=== PATIENT | female | born 1955 | race Caucasian/White ===

== ENCOUNTER → 2017-01-29 | Outpatient (CLI) | payer OTHER | END | disposition home or self-care (01) | LOC: C.LABBC 09:38 | PROVIDERS: ATTEND Family Medicine | DX: E03.9 Hypothyroidism, unspecified (principal) ==

== ENCOUNTER → 2017-07-14 | Outpatient (CLI) | payer OTHER | END | disposition home or self-care (01) | LOC: C.LABBC 11:34 | PROVIDERS: ATTEND Family Medicine | DX: E03.9 Hypothyroidism, unspecified (principal) ==

== ENCOUNTER → 2017-07-29 | Outpatient (CLI) | payer OTHER ==
--- NOTE | 2017-07-30 12:51 | MAMMOGRAPHY REPORT ---
BILATERAL DIGITAL SCREENING MAMMOGRAM TOMOSYNTHESIS WITH CAD: 07/29/2017 CLINICAL HISTORY: Routine screening. Patient has no complaints. TECHNIQUE: Breast tomosynthesis in addition to standard 2D mammography was performed. Current study was also evaluated with a Computer Aided Detection (CAD) system. COMPARISON: Comparison is made to exams dated: 09/13/2009 ultrasound, 09/13/2009 mammogram - [facility], 03/04/2009, and 02/21/2009. BREAST COMPOSITION: There are scattered areas of fibroglandular density in both breasts. FINDINGS: No suspicious masses, calcifications, or areas of architectural distortion are noted in ei ther breast. There has been no significant interval change compared to prior exams. IMPRESSION: ACR BI-RADS CATEGORY 1: NEGATIVE There is no mammographic evidence of malignancy. A 1 year screening mammogram is recommended. The pa tient will receive written notification of the results. Approximately 10% of breast cancers are not detected with mammography. A negative mammographic report should not delay biopsy if a clinically suggestive mass is present. Cinda Lagos M.D. ah/:07/29/2017 15:50:04 [employer]: Nuria Pena, [facility] letter sent: Normal 1/2 BI-RADS Code: ACR BI-RADS Category 1: Negative
== END | disposition home or self-care (01) ==
LOC: C.MAMM 14:17
PROVIDERS: ATTEND Family Medicine
DX: Z12.31 Encounter for screening mammogram for malignant neoplasm of breast (principal)

== ENCOUNTER 2019-01-17 19:48 | Inpatient (IN) ==
[2019-01-17] MEDS ORDERED: MoRPHine SULFATE 4 MG/ML 1 ML CARP\\VIAL IV STA (20:03)
[2019-01-17] MEDS ORDERED: ONDANSETRON INJ 2 MG/ML 2 ML VIAL IV STA (20:03)
[2019-01-17 20:39] LABS: Basophils # (auto) 0.04 K/uL (0-0.2); Basophils % (auto) 0.4 %; Eosinophils # (auto) 0.11 K/uL (0-0.5); Eosinophils % (auto) 1.2 %; Hematocrit (blood only) 41.9 % (37-47); Hemoglobin 14.3 g/dL (12.0-16.0); Immature Granulocytes # (auto) 0.03 K/uL (0.00-0.02); Immature Granulocytes % (auto) 0.3 %; Lymphocytes # (auto) 2.02 K/uL (1.2-3.4); Lymphocytes % (auto) 21.2 %; Mean Corpuscular Hgb Conc 34.1 g/dL (32-36); Mean Corpuscular Volume 92.9 fL (80-100); Mean Platelet Volume 9.4 fL (7.4-10.4); Monocytes # (auto) 1.03 K/uL (0.11-0.59); Monocytes % (auto) 10.8 %; Neutrophils # (auto) 6.31 K/uL (1.4-6.5); Neutrophils % (auto) 66.1 %; Platelet Count 213 K/uL (130-400); RDW Coefficient of Variation 13.4 % (11.5-14.5); RDW Standard Deviation 45.4 fL (36.4-46.3); Red Blood Count 4.51 M/uL (4.2-5.4); White Blood Count 9.54 K/uL (4.8-10.8)
[2019-01-17 20:48] LABS: BUN Creatinine Ratio 24.3 (10-20); Calcium 9.6 mg/dl (8.5-10.1); Creatinine Clr Calc Pharmacy 71.7 ml/min; Est GFR (African American) 100.9; Potassium 3.8 mmol/L (3.5-5.1)
[2019-01-17 20:51] LABS: Albumin Globulin Ratio 1.1 (0.9-2); Bilirubin,Total 0.9 mg/dl (0.2-1); Globulin 3.7 gm/dl (2.5-4.0); Total Protein 7.7 gm/dl (6.4-8.2)
[2019-01-17 20:55] LABS: iSTAT Creatinine 0.7 mg/dl (0.6-1.3); iSTAT Hemoglobin 14.6 g/dl (12.0-16.0); iSTAT Ionized Calcium 1.19 mmol/l (1.12-1.32); iSTAT Potassium 3.8 mEq/L (3.3-5.0)
[2019-01-17] MEDS ORDERED: IOVERSOL 100ml IV PRN (20:56)
[2019-01-17 21:02] LABS: Appearance Urine Clear (Clear); Bacteria Urine Automated Negative (Negative); Bilirubin Urine Negative (Negative); Blood Urine Negative (Negative); Color Urine Dark Yellow; Epithelial Cell Urine Auto >30 /lpf (0-5); Glucose Urine UA Negative (Negative); Ketones Urine Trace (Negative); Leukocyte Esterase Urine 2+ (Negative); Nitrite Urine Negative (Negative); Protein Urine Negative (Negative); RBC Urine Automated 0-4 /hpf (0-4); Specific Gravity Urine 1.029 (1.000-1.030); Urobilinogen Urine Negative (Negative); pH Urine 6.5 (4.5-7.5)
--- NOTE | 2019-01-17 21:19 | CT Scan Report ---
ABDOMEN AND PELVIS CT WITH IV CONTRAST CT DOSE: 430.57 mGy.cm HISTORY: Acute right upper quadrant abdominal pain R sided ab pain TECHNIQUE: Multiaxial CT images of the abdomen and pelvis were performed following the use of intrave nous contrast. A dose lowering technique was utilized adhering to the principles of ALARA. COMPARISON STUDY: Abdominal radiograph 01/12/2019 FINDINGS: Subsegmental bibasilar atelectasis. No pneumatosis or pneumoperitoneum. The cardiac chambers are unre markable. Hepatic dome is partially excluded from the [id number]. Imaged liver is unremarkable. The spleen p ancreas and adrenal glands appear normal. Moderate gallbladder distention is noted with circumferenti al wall thickening and mucosal hyperemia measuring up to 4 mm. No significant pericholecystic fluid o r edema. Cholelithiasis with possible gallstones about the cystic duct. No choledocholithiasis identi fied. Mild wall thickening with enhancement of the common bile duct. Common bile duct measures up to 7 mm transversely. Renal sinus cysts are present about the bilateral kidneys. No renal or ureteral calculi or obstructiv e uropathy identified. Ureters, and urinary bladder appear unremarkable. Prior hysterectomy. No adnex al mass lesions. Moderate calcified plaque of the abdominal aorta without aneurysm. IVC is unremarkab le. Large hiatal hernia, partially imaged. No bowel obstruction or bowel wall thickening. Colonic div erticulosis without acute diverticulitis. Terminal ileum and appendix appear normal. No ascites or me senteric inflammation. Soft tissues are unremarkable. The bones appear to be intact. Multilevel facet arthrosis and spondylitic spurring. IMPRESSION: 1. Cholelithiasis with gallbladder distention, gallbladder wall thickening and hyperemia is suggestiv e of acute cholecystitis. Additionally, there is equivocal gallstones within the cystic duct. Surgic al consultation recommended. 2. Mild common bile duct dilation without choledocholithiasis identified. Additionally, there is mild wall thickening with enhancement of the common bile duct which may be reactive or reflect underlying cholangitis. Correlate with laboratory analysis. 3. No bowel obstruction or bowel wall thickening. 4. Colonic diverticulosis without acute diverticulitis. 5. Normal appendix. Electronically signed by: Santos Small M.D. 01/17/2019 9:18 PM
[2019-01-17] MEDS ORDERED: PIPERACILLIN/TAZOBACTAM 4.5 GM/120 ML BAG IV ONE (21:37)
[2019-01-17] MEDS ORDERED: SODIUM CHLORIDE 0.9% 1000ML 1,000 ML IV SCH (22:45)
--- NOTE | 2019-01-17 22:49 | Surgery Consultation ---
Date of Consultation January 17, 2019 Assessment & Plan (1) Acute cholecystitis due to biliary calculus: pt is a 64 year-old female who presents to Er with 10 days history RUQ pain, CT-scan- acute cholecystitis and cholelithiasis IMP; acute cholecystitis, cholelithiasis, Plan, I recommend to admit to hospital , iv fluid, antibiotic, control pain, repeat labs in morning, laparoscopic cholecystectomy, possible open or cholangiogram tomorrow, D/W benefits, risks and alternatives of tawana surgery, the risks - infection, bleeding, injury CBD, bowel, may need ERCP, CO, DVT, , pt understood, she agrees with the plan, I answered all questions, History of Present Illness History of Present Illness CC: RUQ pain HPI: pt is a 64 year-old female who presents to ER with 10 days history RUQ with nausea and vomiting, the pain is relate to fat food intake, tawana RUQ pain is getting worse today, pt denies chest pain, no fever, no diarrhea, pt had CT scan at ER dx acute cholecystitis with cholelithiasis. Allergies Allergy/AdvReac Type Severity Reaction Status Date / Time No Known Allergies Allergy Verified 01/17/19 22:33 Home Medications Home Medications Medication Instructions Recorded Confirmed Type levothyroxine 88 mcg capsule 88 mcg PO DAILY 01/05/19 01/17/19 History docusate sodium [Stool Softener] 100 mg PO DAILY 01/17/19 01/17/19 History magnesium hydroxide [Milk of 0 ml PO UD PRN 01/17/19 01/17/19 History Magnesia] psyllium husk [Metamucil] 1 tbsp PO DAILY 01/17/19 01/17/19 History Patient History Medical History Abdominal pain Surgical History H/O: hysterectomy Social History Preferred Language: Serbian Feels Safe at Home: Yes Smoking Status: Former smoker Review of Systems Review of Systems: All systems reviewed & are unremarkable except as noted in HPI & below Constitutional: as per Subjective / HPI Ear, Nose, Mouth, Throat: as per Subjective / HPI Respiratory: as per Subjective / HPI Cardiovascular: as per Subjective / HPI Gastrointestinal: + abdominal pain, + nausea and + vomiting Genitourinary: as per Subjective / HPI Musculoskeletal: as per Subjective / HPI Integumentary: as per Subjective / HPI Neurologic: as per Subjective / HPI Psychiatric: as per Subjective / HPI Endocrine: as per Subjective / HPI hypothyroidism Hematologic / Lymphatic: as per Subjective / HPI Physical Exam Constitutional: WD/WN, vitals as above well developed and well nourished ENMT: external ear and nose normal, oropharynx normal Neck: trachea midline, no thyromegaly trachea midline Respiratory: normal respiratory effort, lungs clear to auscultation normal respiratory effort Cardiovascular: RRR, no murmur, no edema Rate/Rhythm: regular rate and regular rhythm Heart Sounds: normal S1 and normal S2 Gastrointestinal (Abdomen): soft, tenderness at RUQ, no rebound pain, no distend, lower abdominal scar. Musculoskeletal: no cyanosis or clubbing, extremities motor strength 5/5 Neurologic: patellar DTR's 2+ bilat, sensation intact Psychiatric: A+Ox3, euthymic affect Orientation: alert and oriented x 3 Lymphatic: no cervical or axillary lymphadenopathy Results & Data Vital Signs (Past 12 Hours) Vital Signs Temp Pulse Resp BP Pulse Ox 01/17/19 20:47 95 01/17/19 19:56 36.5 C 76 18 183/73 H 99 Laboratory Results Abnormal lab results 01/17/19 01/17/19 01/17/19 Range/Units 20:23 20:23 20:28 Immature Gran # (Auto) 0.03 H (0.00-0.02) K/uL Power # (Auto) 1.03 H (0.11-0.59) K/uL POC Chloride 99 L (101-112) mEq/L POC BUN 19 H (7-18) mg/dl BUN/Creatinine Ratio 24.3 H (10-20) Glucose 104 H (70-99) mg/dl POC Glucose (other) 108 H (70-99) mg/dl AST 228 H (15-37) U/L ALT 240 H (12-78) U/L Alkaline Phosphatase 315 H (45-117) U/L Urine Ketones (Negative) Ur Leukocyte Esterase (Negative) Urine WBC (Auto) (0-5) /hpf U Epithel Cells (Auto) (0-5) /lpf 01/17/19 Range/Units 20:42 Immature Gran # (Auto) (0.00-0.02) K/uL Power # (Auto) (0.11-0.59) K/uL POC Chloride (101-112) mEq/L POC BUN (7-18) mg/dl BUN/Creatinine Ratio (10-20) Glucose (70-99) mg/dl POC Glucose (other) (70-99) mg/dl AST (15-37) U/L ALT (12-78) U/L Alkaline Phosphatase (45-117) U/L Urine Ketones Trace H (Negative) Ur Leukocyte Esterase 2+ H (Negative) Urine WBC (Auto) 10-30 H (0-5) /hpf U Epithel Cells (Auto) >30 H (0-5) /lpf Diagnostic Findings ABDOMEN AND PELVIS CT WITH IV CONTRAST CT DOSE: 430.57 mGy.cm HISTORY: Acute right upper quadrant abdominal pain R sided ab pain TECHNIQUE: Multiaxial CT images of the abdomen and pelvis were performed following the use of intravenous contrast. A dose lowering technique was utilized adhering to the principles of ALARA. COMPARISON STUDY: Abdominal radiograph 01/12/2019 FINDINGS: Subsegmental bibasilar atelectasis. No pneumatosis or pneumoperitoneum. The cardiac chambers are unremarkable. Hepatic dome is partially excluded from the [id number]. Imaged liver is unremarkable. The spleen pancreas and adrenal glands appear normal. Moderate gallbladder distention is noted with circumferential wall thickening and mucosal hyperemia measuring up to 4 mm. No significant pericholecystic fluid or edema. Cholelithiasis with possible gallstones about the cystic duct. No choledocholithiasis identified. Mild wall thickening with enhancement of the common bile duct. Common bile duct measures up to 7 mm transversely. Renal sinus cysts are present about the bilateral kidneys. No renal or ureteral calculi or obstructive uropathy identified. Ureters, and urinary bladder appear unremarkable. Prior hysterectomy. No adnexal mass lesions. Moderate calcified plaque of the abdominal aorta without aneurysm. IVC is unremarkable. Large hiatal hernia, partially imaged. No bowel obstruction or bowel wall thickening. Colonic diverticulosis without acute diverticulitis. Terminal ileum and appendix appear normal. No ascites or mesenteric inflammation. Soft tissues are unremarkable. The bones appear to be intact. Multilevel facet arthrosis and spondylitic spurring. IMPRESSION: 1. Cholelithiasis with gallbladder distention, gallbladder wall thickening and hyperemia is suggestive of acute cholecystitis. Additionally, there is equivocal gallstones within the cystic duct. Surgical consultation recommended. 2. Mild common bile duct dilation without choledocholithiasis identified. Additionally, there is mild wall thickening with enhancement of the common bile duct which may be reactive or reflect underlying cholangitis. Correlate with laboratory analysis. 3. No bowel obstruction or bowel wall thickening. 4. Colonic diverticulosis without acute diverticulitis. 5. Normal appendix.
[2019-01-17] MEDS ORDERED: ONDANSETRON INJ 2 MG/ML 2 ML VIAL IV PRN (22:55)
[2019-01-17] MEDS ORDERED: HYDROmorphone INJ 0.5 MG/0.5 ML SYR IV PRN (23:01)
[2019-01-17] MEDS ORDERED: PIPERACILL/TAZOBAC CONSULT ACTIVE PRN (23:07)
--- NOTE | 2019-01-17 23:47 | Emergency Department Note ---
Entered by Britney Rubin acting as a scribe for History of Present Illness General Chief complaint: Abdominal Pain Stated complaint: SEVERE ABDOMINAL PAIN TRAVELING UP THE BACK Time Seen by Provider: 01/17/19 20:02 Source: patient Limitations: no limitations History of Present Illness Onset (ago): week(s) (a few ) Location: abdomen Radiation: back Severity: severe Pain Consistency: + intermittent Maximum Pain Intensity: 8 Relieved By: + none Associated symptoms: + denies other symptoms (change in BMs, hematuria, and dysuria) and + nausea/vomiting (complains of nausea, denies vomiting) The patient is a 64 year old white female w/ PMHx hysterectomy who presents to the ED w/ CC of severe intermittent abdominal pain beginning a few weeks ago. She reports that she has been having episodes of abdominal pain, and she saw her PCP for the symptoms. The patient states that she had a urinalysis and culture done by her PCP, and both were normal. She notes that the pain radiates to her back and right shoulder blade. The patient complains of nausea. She denies any vomiting, change in BMs, hematuria, and dysuria. The patient reports that eating initially helped relieve the symptoms, but it does not provide any relief now. She denies any recent travel, antibiotic use, or trauma. The patient denies contact with anyone sick. Home Medications Home Medications Medication Instructions Recorded Confirmed Type levothyroxine 88 mcg capsule 88 mcg PO DAILY 01/05/19 01/17/19 History docusate sodium [Stool Softener] 100 mg PO DAILY 01/17/19 01/17/19 History magnesium hydroxide [Milk of 0 ml PO UD PRN 01/17/19 01/17/19 History Magnesia] psyllium husk [Metamucil] 1 tbsp PO DAILY 01/17/19 01/17/19 History Allergies Allergy/AdvReac Type Severity Reaction Status Date / Time No Known Allergies Allergy Verified 01/17/19 22:33 Past Med/Surg History Medical History Acute cholecystitis due to biliary calculus Abdominal pain Surgical History H/O: hysterectomy Social History Preferred Language: Portuguese Feels Safe at Home: Yes Smoking Status: Former smoker Review of Systems See HPI for pertinent positives & negatives. and A total of 10 systems reviewed and were otherwise negative Physical Exam Vital Signs Vital Signs - 24 hr 01/17/19 19:56 01/17/19 20:41 01/17/19 20:46 Temperature 36.5 C Temperature Source Oral Sepsis Recent Fever Within 48 Hours No Sepsis New/Unexplained Change in Mental Status No Sepsis Action Taken by Nursing No Action Required Pulse Rate 76 74 75 Pulse Rate [Apical] Pulse Rate from SpO2 Sensor 75 75 Pulse Rhythm [Apical] Respiratory Rate 18 23 20 Respiratory Effort / Characteristics Respiratory Depth Normal Respiratory Pattern Blood Pressure 183/73 H 123/68 Blood Pressure [Right Arm] Blood Pressure Mean 109 86 Blood Pressure Mean [Right Arm] Blood Pressure Position [Right Arm] Pulse Oximetry 99 93 93 Oxygen Delivery Method Room Air 01/17/19 20:47 01/17/19 20:50 01/17/19 22:10 Temperature Temperature Source Sepsis Recent Fever Within 48 Hours Sepsis New/Unexplained Change in Mental Status Sepsis Action Taken by Nursing Pulse Rate 74 71 Pulse Rate [Apical] Pulse Rate from SpO2 Sensor 75 72 Pulse Rhythm [Apical] Respiratory Rate 17 23 Respiratory Effort / Characteristics Respiratory Depth Respiratory Pattern Blood Pressure 139/77 Blood Pressure [Right Arm] Blood Pressure Mean 97 Blood Pressure Mean [Right Arm] Blood Pressure Position [Right Arm] Pulse Oximetry 95 94 94 Oxygen Delivery Method Room Air 01/17/19 22:11 01/17/19 22:20 01/17/19 22:30 Temperature Temperature Source Sepsis Recent Fever Within 48 Hours Sepsis New/Unexplained Change in Mental Status Sepsis Action Taken by Nursing Pulse Rate 68 73 72 Pulse Rate [Apical] 92 H Pulse Rate from SpO2 Sensor 70 72 71 Pulse Rhythm [Apical] Regular Respiratory Rate 20 22 16 Respiratory Effort / Characteristics Non-Labored Spontaneous Respiratory Depth Normal Respiratory Pattern Regular Blood Pressure Blood Pressure [Right Arm] 151/74 H Blood Pressure Mean Blood Pressure Mean [Right Arm] 99 Blood Pressure Position [Right Arm] Lying Pulse Oximetry 94 95 94 Oxygen Delivery Method Room Air 01/17/19 22:32 01/17/19 22:40 01/17/19 22:50 Temperature Temperature Source Sepsis Recent Fever Within 48 Hours Sepsis New/Unexplained Change in Mental Status Sepsis Action Taken by Nursing Pulse Rate 76 67 67 Pulse Rate [Apical] Pulse Rate from SpO2 Sensor 77 67 67 Pulse Rhythm [Apical] Respiratory Rate 18 17 18 Respiratory Effort / Characteristics Respiratory Depth Respiratory Pattern Blood Pressure 151/74 H Blood Pressure [Right Arm] Blood Pressure Mean 99 Blood Pressure Mean [Right Arm] Blood Pressure Position [Right Arm] Pulse Oximetry 94 93 96 Oxygen Delivery Method GENERAL: Uncomfortable in appearance, well nourished, non-toxic. EYE EXAM: Normal conjunctiva. PERRL, no anisocoria and EOM's grossly intact w/o pain. OROPHARYNX: Moist mucus membranes. Grossly normal dentition. NECK: Supple, no nuchal rigidity, no adenopathy, non-tender. No signs of meningismus. LUNGS: Clear to auscultation. Normal chest wall mechanics. HEART: NSR, no MRG. ABDOMEN: Abdomen soft, normo-active bowel sounds, no masses, no rebound or guarding. Right sided abdominal discomfort, not peritonitic. BACK: No CVA TTP. SKIN: No rashes and no bruising. UPPER EXTREMITIES: Upper extremities are grossly normal. LOWER EXTREMITIES: No pitting edema. No calf pain. NEURO EXAM: A&O x3, cranial nerves II-XII grossly intact, normal speech, moves all 4 extremities on command w/o issue. Course 2004: The patient was evaluated in room C11B. A complete history and physical exam was performed. 2139: I spoke with Dr. Erickson, [facility] surgery, about the patients case. He will evaluate the patient. 2204: I spoke with the patient and updated her on the plan. She denied any current pain. Consultations Consultation #1: I spoke with Dr. Erickson, [facility] surgery, about the patients case. He will evaluate the patient. Time: 21:40 Administered Medications Ioversol (Optiray 320 100ml) 89 ml IV ONCE PRN PRN Reason: Interaction Checking Stop: 01/21/19 20:55 Last Admin: 01/17/19 20:56 Dose: 89 ml Documented by: [id number] Discontinued Medications Piperacillin Sod/Tazobactam Sod (Zosyn) 4.5 gm in 120 mls @ 240 mls/hr IV NOW ONE Stop: 01/17/19 22:06 Last Infusion: 01/17/19 23:00 Dose: 0 mls/hr Documented by: [id number] Admin: 01/17/19 22:04 Dose: 240 mls/hr Documented by: [id number] Sodium Chloride (Nss 1000ml) 1,000 mls @ 125 mls/hr IV .Q8H [facility] Stop: 02/16/19 22:44 Last Admin: 01/17/19 23:06 Dose: Not Given Documented by: [id number] Morphine Sulfate (Morphine Sulfate) 4 mg IV NOW STA Stop: 01/17/19 20:04 Last Admin: 01/17/19 20:29 Dose: 4 mg Documented by: [id number] Ondansetron HCl (Zofran) 4 mg IV NOW STA Stop: 01/17/19 20:04 Last Admin: 01/17/19 20:29 Dose: 4 mg Documented by: [id number] Medical Decision Making Differential Diagnosis Etiologies such as biliary colic, cholecystitis, hepatitis, perihepatitis, pancreatitis, cardiac disease, pancreatitis, gastritis, peptic ulcer disease, appendicitis, ovarian cyst, ovarian torsion, ectopic , pelvic inflammatory disease, cystitis, diverticulitis, mesenteric ischemia, inflammatory bowel disease, ileus, bowel obstruction, aortic pathology, shingles, as well as others were considered. Medical Records Attestation: I reviewed the patient's medical records. Home Medications Current Medication List: was personally reviewed by me Laboratory Data Attestation: I reviewed the patient's lab results. Result diagrams: 01/17/19 20:23 01/17/19 20:23 Lab Results 01/17/19 01/17/19 01/17/19 Range/Units 20:23 20:23 20:28 WBC 9.54 (4.8-10.8) K/uL RBC 4.51 (4.2-5.4) M/uL Hgb 14.3 (12.0-16.0) g/dL POC Hgb 14.6 (12.0-16.0) g/dl Hct 41.9 (37-47) % POC Hct 43 (37-47) % MCV 92.9 (80-100) fL MCH 31.7 (25-34) pg MCHC 34.1 (32-36) g/dL RDW Std Deviation 45.4 (36.4-46.3) fL RDW Coeff of Rhett 13.4 (11.5-14.5) % Plt Count 213 (130-400) K/uL MPV 9.4 (7.4-10.4) fL Immature Gran % (Auto) 0.3 % Neut % (Auto) 66.1 % Lymph % (Auto) 21.2 % [place] % (Auto) 10.8 % Eos % (Auto) 1.2 % Baso % (Auto) 0.4 % Immature Gran # (Auto) 0.03 H (0.00-0.02) K/uL Neut # (Auto) 6.31 (1.4-6.5) K/uL Lymph # (Auto) 2.02 (1.2-3.4) K/uL [place] # (Auto) 1.03 H (0.11-0.59) K/uL Eos # (Auto) 0.11 (0-0.5) K/uL Baso # (Auto) 0.04 (0-0.2) K/uL POC Sodium 139 (135-144) mEq/L Sodium 138 (136-145) mmol/L POC Potassium 3.8 (3.3-5.0) mEq/L Potassium 3.8 (3.5-5.1) mmol/L POC Chloride 99 L (101-112) mEq/L Chloride 104 (98-107) mmol/L Carbon Dioxide 28 (21-32) mmol/L POC Total CO2 25 (24-31) mEq/l Anion Gap 7.0 (3-11) POC Anion Gap 20.0 (16-25) mmol/L POC BUN 19 H (7-18) mg/dl BUN 18 (7-18) mg/dl Creatinine 0.73 (0.6-1.2) mg/dl POC Creatinine 0.7 (0.6-1.3) mg/dl Est Cr Clr Drug Dosing 71.7 ml/min Est GFR ( Amer) 100.9 Est GFR (Non-Af Amer) 87.0 BUN/Creatinine Ratio 24.3 H (10-20) Glucose 104 H (70-99) mg/dl POC Glucose (other) 108 H (70-99) mg/dl Calcium 9.6 (8.5-10.1) mg/dl POC Ioniz Calcium Fili 1.19 (1.12-1.32) mmol/l Total Bilirubin 0.9 (0.2-1) mg/dl AST 228 H (15-37) U/L ALT 240 H (12-78) U/L Alkaline Phosphatase 315 H (45-117) U/L Total Protein 7.7 (6.4-8.2) gm/dl Albumin 4.0 (3.4-5.0) gm/dl Globulin 3.7 (2.5-4.0) gm/dl Albumin/Globulin Ratio 1.1 (0.9-2) Lipase 172 (73-393) U/L Urine Color Urine Appearance (Clear) Urine pH (4.5-7.5) Ur Specific [place] (1.000-1.030) Urine Protein (Negative) Urine Glucose (UA) (Negative) Urine Ketones (Negative) Urine Blood (Negative) Urine Nitrite (Negative) Urine Bilirubin (Negative) Urine Urobilinogen (Negative) Ur Leukocyte Esterase (Negative) Urine WBC (Auto) (0-5) /hpf Urine RBC (Auto) (0-4) /hpf U Hyaline Cast (Auto) (0-5) /lpf U Epithel Cells (Auto) (0-5) /lpf Urine Bacteria (Auto) (Negative) 01/17/19 Range/Units 20:42 WBC (4.8-10.8) K/uL RBC (4.2-5.4) M/uL Hgb (12.0-16.0) g/dL POC Hgb (12.0-16.0) g/dl Hct (37-47) % POC Hct (37-47) % MCV (80-100) fL MCH (25-34) pg MCHC (32-36) g/dL RDW Std Deviation (36.4-46.3) fL RDW Coeff of Rhett (11.5-14.5) % Plt Count (130-400) K/uL MPV (7.4-10.4) fL Immature Gran % (Auto) % Neut % (Auto) % Lymph % (Auto) % [place] % (Auto) % Eos % (Auto) % Baso % (Auto) % Immature Gran # (Auto) (0.00-0.02) K/uL Neut # (Auto) (1.4-6.5) K/uL Lymph # (Auto) (1.2-3.4) K/uL [place] # (Auto) (0.11-0.59) K/uL Eos # (Auto) (0-0.5) K/uL Baso # (Auto) (0-0.2) K/uL POC Sodium (135-144) mEq/L Sodium (136-145) mmol/L POC Potassium (3.3-5.0) mEq/L Potassium (3.5-5.1) mmol/L POC Chloride (101-112) mEq/L Chloride (98-107) mmol/L Carbon Dioxide (21-32) mmol/L POC Total CO2 (24-31) mEq/l Anion Gap (3-11) POC Anion Gap (16-25) mmol/L POC BUN (7-18) mg/dl BUN (7-18) mg/dl Creatinine (0.6-1.2) mg/dl POC Creatinine (0.6-1.3) mg/dl Est Cr Clr Drug Dosing ml/min Est GFR ( Amer) Est GFR (Non-Af Amer) BUN/Creatinine Ratio (10-20) Glucose (70-99) mg/dl POC Glucose (other) (70-99) mg/dl Calcium (8.5-10.1) mg/dl POC Ioniz Calcium Fili (1.12-1.32) mmol/l Total Bilirubin (0.2-1) mg/dl AST (15-37) U/L ALT (12-78) U/L Alkaline Phosphatase (45-117) U/L Total Protein (6.4-8.2) gm/dl Albumin (3.4-5.0) gm/dl Globulin (2.5-4.0) gm/dl Albumin/Globulin Ratio (0.9-2) Lipase (73-393) U/L Urine Color Dark Yellow Urine Appearance Clear (Clear) Urine pH 6.5 (4.5-7.5) Ur Specific [place] 1.029 (1.000-1.030) Urine Protein Negative (Negative) Urine Glucose (UA) Negative (Negative) Urine Ketones Trace H (Negative) Urine Blood Negative (Negative) Urine Nitrite Negative (Negative) Urine Bilirubin Negative (Negative) Urine Urobilinogen Negative (Negative) Ur Leukocyte Esterase 2+ H (Negative) Urine WBC (Auto) 10-30 H (0-5) /hpf Urine RBC (Auto) 0-4 (0-4) /hpf U Hyaline Cast (Auto) 1-5 (0-5) /lpf U Epithel Cells (Auto) >30 H (0-5) /lpf Urine Bacteria (Auto) Negative (Negative) Imaging Data Radiologist's Impression: Radiology results as stated below per my review and the radiologist's interpretation: ABDOMEN AND PELVIS CT WITH IV CONTRAST CT DOSE: 430.57 mGy.cm HISTORY: Acute right upper quadrant abdominal pain R sided ab pain TECHNIQUE: Multiaxial CT images of the abdomen and pelvis were performed following the use of intravenous contrast. A dose lowering technique was utilized adhering to the principles of ALARA. COMPARISON STUDY: Abdominal radiograph 01/12/2019 FINDINGS: Subsegmental bibasilar atelectasis. No pneumatosis or pneumoperitoneum. The cardiac chambers are unremarkable. Hepatic dome is partially excluded from the [id number]. Imaged liver is unremarkable. The spleen pancreas and adrenal glands appear normal. Moderate gallbladder distention is noted with circumferential wall thickening and mucosal hyperemia measuring up to 4 mm. No significant pericholecystic fluid or edema. Cholelithiasis with possible gallstones about the cystic duct. No choledocholithiasis identified. Mild wall thickening with enhancement of the common bile duct. Common bile duct measures up to 7 mm transversely. Renal sinus cysts are present about the bilateral kidneys. No renal or ureteral calculi or obstructive uropathy identified. Ureters, and urinary bladder appear unremarkable. Prior hysterectomy. No adnexal mass lesions. Moderate calcified plaque of the abdominal aorta without aneurysm. IVC is unremarkable. Large hiatal hernia, partially imaged. No bowel obstruction or bowel wall thickening. Colonic diverticulosis without acute diverticulitis. Terminal ileum and appendix appear normal. No ascites or mesenteric inflammation. Soft tissues are unremarkable. The bones appear to be intact. Multilevel facet arthrosis and spondylitic spurring. IMPRESSION: 1. Cholelithiasis with gallbladder distention, gallbladder wall thickening and hyperemia is suggestive of acute cholecystitis. Additionally, there is equivocal gallstones within the cystic duct. Surgical consultation recommended. 2. Mild common bile duct dilation without choledocholithiasis identified. Additionally, there is mild wall thickening with enhancement of the common bile duct which may be reactive or reflect underlying cholangitis. Correlate with laboratory analysis. 3. No bowel obstruction or bowel wall thickening. 4. Colonic diverticulosis without acute diverticulitis. 5. Normal appendix. Electronically signed by: Santos Small M.D. 01/17/2019 9:18 PM ECG Data Attestation: I personally reviewed and interpreted this ECG as follows: Indication: abdominal pain Rate (beats per minute): 80 Rhythm: normal sinus Findings: + other (normal intervals, normal axis, low voltage QRS, possible T wave flattening in V2 and V3, no STS changes) Comparison ECG Date: from (01/09/2002) Change: no significant change Blood Pressure Blood Pressure Findings: Elevated blood pressure Additional Comments: further management by surgeon MDM Narrative The patient is a 64 year old white female w/ PMHx hysterectomy who presents to the ED w/ CC of severe intermittent abdominal pain beginning a few weeks ago. Patient was seen and evaluated the bedside. The patient had been complaining some intermittent right-sided abdominal pain that is worse today. Patient states that it got better with eating but now it does not make it better or worse. Patient had been seen as an outpatient did have urinalysis which she is states was negative and had an x-ray that showed possible constipation. Patient states she has had a recent bowel movement. Patient did have blood work completed. The patient has a normal white count and H&H. The patient has normal kidney function. LFTs are tracely elevated. Bilirubin is normal. The patient CT does show concerning findings for cholecystitis. There was some mild inflammation to the CBD and it is borderline dilated at 7 mm. The patient was started on Zosyn but the patient does not have fever or white count. I did speak the on-call surgeon who agreed to further evaluate treat the patient. Patient was made n.p.o. Patient was admitted to the surgical service. Impression & Plan Acute cholecystitis, Right sided abdominal pain Discharge Plan Visit Data Chief Complaint: Abdominal Pain Stated Complaint: SEVERE ABDOMINAL PAIN TRAVELING UP THE BACK ED Provider: Jordon Jones Discharge Problem: Acute cholecystitis, Right sided abdominal pain Patient Disposition: Being Evaluated by Surgeon Forms Stand Alone Forms: Call Back Authorization, [facility] Prescriptions Prescriptions: No Action levothyroxine 88 mcg capsule 88 mcg PO DAILY RF: 0 magnesium hydroxide [Milk of Magnesia] 400 mg/5 mL Suspension PO UD PRN (Reason: Constipation) RF: 0 docusate sodium [Stool Softener] 100 mg Tablet 100 mg PO DAILY RF: 0 Metamucil 3.4 gram/5.4 gram Powder 1 tbsp PO DAILY RF: 0 Referrals Referrals: Yasmine King MD [Primary Care Provider] - The scribe's documentation has been prepared under my direction and personally reviewed by me in its entirety. I confirm that the note above accurately reflects all work, treatment, procedures, and medical decision making performed by me.
[2019-01-18] MEDS ORDERED: MAGNESIUM HYDROXIDE SUSP 30 ML UDC PO PRN
[2019-01-18] MEDS: LACTATED RINGER'S 1,000 ML IV SCH ×3 (00:25→23:52)
[2019-01-18] MEDS: PIPERACILLIN/TAZOBACTAM 3.375 GM in DEXTROSE 5% 100 ML IV SCH ×3 (04:59→21:13)
[2019-01-18] MEDS: LEVOTHYROXINE SODIUM 88 MCG TABLET PO SCH (05:03)
[2019-01-18 05:37] LABS: Basophils # (auto) 0.02 K/uL (0-0.2); Basophils % (auto) 0.4 %; Eosinophils # (auto) 0.09 K/uL (0-0.5); Eosinophils % (auto) 1.6 %; Hematocrit (blood only) 38.1 % (37-47); Hemoglobin 12.9 g/dL (12.0-16.0); Immature Granulocytes # (auto) 0.02 K/uL (0.00-0.02); Immature Granulocytes % (auto) 0.4 %; Lymphocytes # (auto) 1.41 K/uL (1.2-3.4); Lymphocytes % (auto) 24.7 %; Mean Corpuscular Hgb Conc 33.9 g/dL (32-36); Mean Corpuscular Volume 91.1 fL (80-100); Mean Platelet Volume 9.4 fL (7.4-10.4); Monocytes % (auto) 12.3 %; Neutrophils # (auto) 3.47 K/uL (1.4-6.5); Neutrophils % (auto) 60.6 %; Platelet Count 175 K/uL (130-400); RDW Coefficient of Variation 13.3 % (11.5-14.5); RDW Standard Deviation 44.1 fL (36.4-46.3); Red Blood Count 4.18 M/uL (4.2-5.4); White Blood Count 5.71 K/uL (4.8-10.8)
[2019-01-18 06:23] LABS: Albumin Level 3.2 gm/dl (3.4-5.0); BUN Creatinine Ratio 18.8 (10-20); Bilirubin,Total 0.8 mg/dl (0.2-1); Calcium 8.9 mg/dl (8.5-10.1); Creatinine Clr Calc Pharmacy 93.2 ml/min; Est GFR (African American) 114.2; Est GFR (Non-African American) 98.5; Globulin 3.1 gm/dl (2.5-4.0); Potassium 3.8 mmol/L (3.5-5.1); Total Protein 6.3 gm/dl (6.4-8.2)
--- NOTE | 2019-01-18 07:19 | Anesthesiology Consultation ---
Date of Service January 18, 2019 Assessment & Plan (1) Encounter for pre-operative examination: Chart Review Chart Review: Acceptable Risk for Surgery and Patient NOT seen in Pre Admission Testing Consults Requested none History Surgery Operation Date: 01/18/19 10:50 Proposed Procedures p Laparoscopic Cholecystectomy - Heidy Erickson MD Height/Weight Height: 5 ft 1 in Weight: 73.8 kg Allergies Allergy/AdvReac Type Severity Reaction Status Date / Time No Known Allergies Allergy Verified 01/17/19 22:33 Medications Home Medications Medication Instructions Recorded Confirmed Last Taken levothyroxine 88 mcg capsule 88 mcg PO DAILY 01/05/19 01/17/19 01/17/19 docusate sodium [Stool Softener] 100 mg PO DAILY 01/17/19 01/17/19 Unknown magnesium hydroxide [Milk of 0 ml PO UD PRN 01/17/19 01/17/19 Unknown Magnesia] psyllium husk [Metamucil] 1 tbsp PO DAILY 01/17/19 01/17/19 Unknown Active Medications Generic Name Dose Route Start Last Admin Trade Name Freq PRN Reason Stop Dose Admin Lactated Ringer's 1,000 mls @ 80 mls/hr 01/17/19 23:00 01/18/19 00:25 Lr IV 02/16/19 22:59 80 mls/hr .[id number] ELIZABETH Administration Piperacillin Sod/Tazobactam 115 mls @ 28.75 mls/hr 01/18/19 04:00 01/18/19 04:59 Sod 3.375 gm/ Dextrose IV 01/20/19 03:59 28.8 mls/hr Q8H ELIZABETH Administration Protocol Ioversol 89 ml 01/17/19 20:56 01/17/19 20:56 Optiray 320 100ml IV 01/21/19 20:55 89 ml ONCE PRN Administration Interaction Checking Levothyroxine Sodium 88 mcg 01/18/19 06:30 01/18/19 05:03 Synthroid PO 02/17/19 06:29 88 mcg DAILYBB ELIZABETH Administration NPO Date Last Intake of Fluids: 01/17/19 Time Last Intake of Fluids: 00:00 Date Last Intake of Solids: 01/17/19 Time Last Intake of Solids: 13:00 Past Medical History Medical History Acute cholecystitis due to biliary calculus Abdominal pain Benji's disease Past Surgical History Surgical History H/O: hysterectomy History of ankle surgery Left ankle. Plates and screws present Social History Smoking Status: Former smoker Hx Alcohol Use: Yes Alcohol type: wine and hard liquor alcohol intake frequency: a few times a week Alcohol Intake Frequency Comment: 10 drinks a week Hx Substance Use: No substance use type: does not use Physical Exam Vital Signs Last Vital Signs Temp 36.7 C 01/18/19 00:10 Pulse 57 L 01/18/19 00:10 Resp 18 01/18/19 00:10 BP 124/69 01/18/19 00:24 Pulse Ox 95 01/18/19 00:10 Testing Laboratory Results 01/18/19 05:21 01/18/19 05:21 Urine Color Dark Yellow 01/17/19 20:42 Urine Appearance Clear (Clear) 01/17/19 20:42 Urine pH 6.5 (4.5-7.5) 01/17/19 20:42 Ur Specific [place] 1.029 (1.000-1.030) 01/17/19 20:42 Urine Protein Negative (Negative) 01/17/19 20:42 Urine Glucose (UA) Negative (Negative) 01/17/19 20:42 Urine Ketones Trace (Negative) H 01/17/19 20:42 Urine Nitrite Negative (Negative) 01/17/19 20:42 Ur Leukocyte Esterase 2+ (Negative) H 01/17/19 20:42 Urine WBC (Auto) 10-30 /hpf (0-5) H 01/17/19 20:42 Urine RBC (Auto) 0-4 /hpf (0-4) 01/17/19 20:42 U Hyaline Cast (Auto) 1-5 /lpf (0-5) 01/17/19 20:42 U Epithel Cells (Auto) >30 /lpf (0-5) H 01/17/19 20:42 Urine Bacteria (Auto) Negative (Negative) 01/17/19 20:42 01/17/19 20:28 POC Glucose (other) 108 H Electrocardiogram Date: 01/17/19 Findings: + NSR @ (80) low voltage QRS
[2019-01-18] MEDS: DOCUSATE SODIUM 100 MG CAP PO SCH (08:24)
[2019-01-18] MEDS: PSYLLIUM 58.6% POWDER PACKET PO SCH (08:24)
--- NOTE | 2019-01-18 10:59 | Anesthesiology Progress Note ---
Date of Service January 18, 2019 Anesthesia Post Procedure Vital Signs Vital Signs: Temp Pulse Pulse Pulse Resp BP BP 01/18/19 07:46 36.9 C 64 18 122/72 01/18/19 00:24 124/69 01/18/19 00:10 36.7 C 57 L 18 166/80 H 01/17/19 23:46 36.8 C 73 18 136/78 01/17/19 22:50 67 18 01/17/19 22:40 67 17 01/17/19 22:32 76 18 151/74 H 01/17/19 22:30 72 92 H 16 151/74 H 01/17/19 22:20 73 22 01/17/19 22:11 68 20 01/17/19 22:10 71 23 139/77 01/17/19 20:50 74 17 01/17/19 20:47 01/17/19 20:46 75 20 01/17/19 20:41 74 23 123/68 01/17/19 19:56 36.5 C 76 18 183/73 H Pulse Ox 01/18/19 07:46 95 01/18/19 00:24 01/18/19 00:10 95 01/17/19 23:46 95 01/17/19 22:50 96 01/17/19 22:40 93 01/17/19 22:32 94 01/17/19 22:30 94 01/17/19 22:20 95 01/17/19 22:11 94 01/17/19 22:10 94 01/17/19 20:50 94 01/17/19 20:47 95 01/17/19 20:46 93 01/17/19 20:41 93 01/17/19 19:56 99 Pain Intensity Abdomen: Pain Intensity: 1 Transfer of Care Handoff Completed per policy Notes Mental Status: alert / awake / arousable and participated in evaluation Nausea / Vomiting: adequately controlled Pain: adequately controlled Airway Patency, RR, SpO2: stable & adequate BP & HR: stable & adequate Hydration State: stable & adequate Neuraxial Anesthesia: was administered and sensory block is resolving Anesthetic Complications: no major complications apparent and Pt Satisfied with anesthetic care
[2019-01-18] MEDS ORDERED: fentaNYL citrate 100 MCG/2 ML VIAL ONE ×2 (12:52)
[2019-01-18] MEDS ORDERED: MIDAZOLAM HCL 1 MG/ML 2ML VIAL ONE (12:52)
--- NOTE | 2019-01-18 13:12 | History & Physical Bridge Note ---
Date of Service January 18, 2019 History & Physical Bridge Note I have examined the patient, reviewed the History & Physical and in the interval since the performance of the History & Physical I have noted the following changes of clinical significance: no changes noted
[2019-01-18] MEDS ORDERED: BUPIVACAINE 0.5 % 5 MG/1 ML MPF 30ML VIAL ONE (13:17)
[2019-01-18] MEDS ORDERED: BACITRACIN OINT 15 GM TUBE ONE (13:17)
[2019-01-18] MEDS ORDERED: LIDOCAINE HCL 1% 20 ML VIAL ONE (13:17)
[2019-01-18] MEDS ORDERED: PROMETHAZINE HCL 12.5 MG in SODIUM CHLORIDE 0.9% 50 ML IV PRN (13:38)
[2019-01-18] MEDS ORDERED: ATROPINE SULFATE 0.1 MG/ML 10ML SYR IV PRN (13:38)
[2019-01-18] MEDS ORDERED: ePHEDrine sulfate 50 MG/ML AMP IV PRN (13:38)
[2019-01-18] MEDS ORDERED: ONDANSETRON INJ 2 MG/ML 2 ML VIAL IV PRN (13:38)
[2019-01-18] MEDS ORDERED: HYDROmorphone INJ 1 MG/ML SYRINGE IV PRN (13:38)
--- NOTE | 2019-01-18 15:02 | Post Operative Brief Note ---
Immediate Post Op Note v1 Date of Surgery January 18, 2019 Pre & Post Diagnosis Operation Date: 01/18/19 10:50 Pre-Op Diagnosis: ACUTE CHOLECYSTITIS, cholelithiasis Post-Op Diagnosis: ACUTE CHOLECYSTITIS, cholelithiasis Procedure Operation Date: 01/18/19 10:50 Actual Procedures p Laparoscopic Cholecystectomy(Not Applicable) - Heidy Erickson MD Surgeon Heidy Eirckson MD Computer Rep[employer] Engineer BASSAM [place] Estimated Blood Loss 10 Findings Consistent with Post-Op Diagnosis Fluids 1000ml Specimens gallbladder Anesthesia Type General Complications none Disposition Accompanied Patient To Recovery: Yes Disposition: Recovery Room Overlapping Procedure I was immediately available: during the entire case.
[2019-01-18] MEDS ORDERED: NEOSTIGMINE METHYLSULFATE 5 MG/5 ML SYR ONE (15:35)
[2019-01-18] MEDS ORDERED: ONDANSETRON INJ 2 MG/ML 2 ML VIAL ONE (15:35)
[2019-01-18] MEDS ORDERED: DEXAMETHASONE SOD INJ 4 MG/ML VIAL ONE (15:35)
[2019-01-18] MEDS ORDERED: PROPOFOL IV EMULSION 10 MG/ML 20 ML VIAL IV ONE (15:35)
[2019-01-18] MEDS ORDERED: GLYCOPYRROLATE 0.2 MG/ML VIAL ONE (15:35)
[2019-01-18] MEDS ORDERED: LIDOCAINE HCL 2% 2 ML VIAL/AMP(20MG/ML) INFIL ONE (15:35)
[2019-01-18] MEDS ORDERED: ROCURONIUM BROMIDE 10 MG/ML 5 ML VIAL ONE (15:35)
--- NOTE | 2019-01-18 15:43 | Anesthesiology Progress Note ---
Date of Service January 18, 2019 Anesthesia Post Procedure Vital Signs Vital Signs: Temp Pulse Pulse Pulse Pulse Resp BP 01/18/19 13:00 36.7 C 66 18 01/18/19 07:46 36.9 C 64 18 01/18/19 00:24 01/18/19 00:10 36.7 C 57 L 18 01/17/19 23:46 36.8 C 73 18 136/78 01/17/19 22:50 67 18 01/17/19 22:40 67 17 01/17/19 22:32 76 18 151/74 H 01/17/19 22:30 72 92 H 16 01/17/19 22:20 73 22 01/17/19 22:11 68 20 01/17/19 22:10 71 23 139/77 01/17/19 20:50 74 17 01/17/19 20:47 01/17/19 20:46 75 20 01/17/19 20:41 74 23 123/68 01/17/19 19:56 36.5 C 76 18 183/73 H BP Pulse Ox 01/18/19 13:00 149/65 H 95 01/18/19 07:46 122/72 95 01/18/19 00:24 124/69 01/18/19 00:10 166/80 H 95 01/17/19 23:46 95 01/17/19 22:50 96 01/17/19 22:40 93 01/17/19 22:32 94 01/17/19 22:30 151/74 H 94 01/17/19 22:20 95 01/17/19 22:11 94 01/17/19 22:10 94 01/17/19 20:50 94 01/17/19 20:47 95 01/17/19 20:46 93 01/17/19 20:41 93 01/17/19 19:56 99 Pain Intensity Abdomen: Pain Intensity: 1 Transfer of Care Handoff Completed per policy Notes Mental Status: alert / awake / arousable and participated in evaluation Patient Amnestic to Procedure: Yes Nausea / Vomiting: adequately controlled Pain: adequately controlled Airway Patency, RR, SpO2: stable & adequate BP & HR: stable & adequate Hydration State: stable & adequate Anesthetic Complications: no major complications apparent and Pt Satisfied with anesthetic care
[2019-01-18] MEDS: fentaNYL citrate 100 MCG/2 ML VIAL IV PRN ×2 (15:48→15:53)
[2019-01-18] MEDS: OXYCODONE/ACETAMINOPHEN 5mg/325mg TAB PO PRN (17:19)
--- NOTE | 2019-01-18 20:56 | Operative Report ---
DATE OF OPERATION: 01/18/2019 PREOPERATIVE DIAGNOSIS: Acute cholecystitis, cholelithiasis. POSTOPERATIVE DIAGNOSIS: Acute cholecystitis, cholelithiasis. OPERATION: Laparoscopic cholecystectomy. SURGEON: Heidy Erickson MD MOTOR TESTER: Bri Mehta PA-C. ANESTHESIA: General. ESTIMATED BLOOD LOSS: About 10 mL FINDINGS: Acute cholecystitis. COMPLICATIONS: None. INDICATIONS FOR THE PROCEDURE: This is a 64-year-old female who presented to the ED with 10 days' history of right upper quadrant pain. The patient had a CT scan and diagnosed with acute cholecystitis with cholelithiasis. The patient will be required to do laparoscopic cholecystectomy, possible open, possible cholangiogram. I did talk to the patient about the benefit and risk, alternate procedure. I indicated the risks may include but not limited such as bleeding, infection, injury to common bile duct, injury to the bowel, myocardial infarction, DVT, stroke, even . The patient understands. She signed informed consent and I answered all questions. DETAILS OF PROCEDURE: We brought the patient to the OR, put the patient in the supine position. The patient received SCD on bilateral leg to prevent DVT. Also, patient received Zosyn 3.375 grams IV for prophylactic antibiotics. The patient received general anesthesia without difficulty. The abdomen was prepped and draped in routine sterile fashion. After time out the patient was identified and was correct. Then I injected local anesthesia by using 1% lidocaine mixed with 0.5% Marcaine just above umbilicus. Then I made a small incision just above umbilicus, opened fascia and opened peritoneum under direct vision, put a Vivian trocar in, we put the camera in and found the patient has some adhesions on the right side of the abdomen. We will be able to move the camera to reach the right side of the abdomen, then we put another three 5 mm trocar on the right side upper quadrant area under direct vision. Once all trocars in, we put a grasper to hold the gallbladder. The gallbladder showed significant acute cholecystitis, gallbladder wall thickening, edema, confirmed diagnosis of acute cholecystitis. Then, we used a grasper to hold the base of the gallbladder, put direction to the diaphragm. Another grasper to hold the pouch of gallbladder, put the latter to expose the triangle of Calot. The cystic duct was identified and mobilized. Then I put two 5 mm metal clip on the proximal cystic duct, one on the distal cystic duct. I used a scissor for transection of cystic duct. Rechecked and no bile leak, no active bleeding. The cystic artery was identified and mobilized. I put two 5 mm metal clips on the proximal cystic artery, one on the distal cystic duct artery. I used the scissors for transection of cystic duct. Rechecked, no active bleeding. Then we take down the gallbladder from the liver bed by using the Bovie. Rechecked, no active bleeding, no bile leak. Then we removed the gallbladder through the catcher bag. Then we reinserted Vivian trocar and connected to CO2 to create pneumoperitoneum. Again looked around the abdomen, shows no bile leak and no active bleeding from the liver bed. We removed all trocar under direct vision. No active bleeding from the trocar sites. Pneumoperitoneum was released. I closed the umbilical incision, fascial layer by using #1 Vicryl [id number] x2, closed subcutaneous layer by using 2-0 Vicryl interrupted and closed skin by using 4-0 Vicryl continuous running, closed another three 5 mm trocar site skin only by using 4-0 Vicryl. Then we put the dressing on. The patient tolerated the procedure well. All the instrument, needle and sponge count correct x2 at the end of case. The patient transferred over to Recovery Room in stable condition. The specimen sent to Pathology. After procedure, I did talk to the patient and family member about the OR finding and procedure we did and he understands. I attest to the content of the Intraoperative Record and any orders documented therein. Any exception s are noted below.
[2019-01-19] MEDS: PIPERACILLIN/TAZOBACTAM 3.375 GM in DEXTROSE 5% 100 ML IV SCH (04:27)
[2019-01-19] MEDS: LEVOTHYROXINE SODIUM 88 MCG TABLET PO SCH (05:48)
[2019-01-19] MEDS: OXYCODONE/ACETAMINOPHEN 5mg/325mg TAB PO PRN (06:37)
[2019-01-19 07:03] LABS: Basophils # (auto) 0.01 K/uL (0-0.2); Basophils % (auto) 0.1 %; Eosinophils # (auto) 0.01 K/uL (0-0.5); Eosinophils % (auto) 0.1 %; Hemoglobin 12.5 g/dL (12.0-16.0); Immature Granulocytes # (auto) 0.02 K/uL (0.00-0.02); Immature Granulocytes % (auto) 0.3 %; Lymphocytes # (auto) 0.87 K/uL (1.2-3.4); Lymphocytes % (auto) 12.9 %; Mean Corpuscular Hgb Conc 32.9 g/dL (32-36); Mean Corpuscular Volume 93.1 fL (80-100); Mean Platelet Volume 9.5 fL (7.4-10.4); Monocytes # (auto) 0.53 K/uL (0.11-0.59); Monocytes % (auto) 7.9 %; Neutrophils % (auto) 78.7 %; Platelet Count 169 K/uL (130-400); RDW Coefficient of Variation 13.4 % (11.5-14.5); RDW Standard Deviation 45.2 fL (36.4-46.3); Red Blood Count 4.08 M/uL (4.2-5.4); White Blood Count 6.74 K/uL (4.8-10.8)
[2019-01-19 07:36] LABS: Albumin Level 3.2 gm/dl (3.4-5.0); BUN Creatinine Ratio 8.8 (10-20); Calcium 8.5 mg/dl (8.5-10.1); Creatinine Clr Calc Pharmacy 65.3 ml/min; Est GFR (African American) 90.3; Est GFR (Non-African American) 77.9; Potassium 3.6 mmol/L (3.5-5.1)
[2019-01-19 07:38] LABS: Bilirubin,Total 0.7 mg/dl (0.2-1); Globulin 3.1 gm/dl (2.5-4.0); Total Protein 6.3 gm/dl (6.4-8.2)
[2019-01-19] MEDS: PSYLLIUM 58.6% POWDER PACKET PO SCH (08:04)
[2019-01-19] MEDS: DOCUSATE SODIUM 100 MG CAP PO SCH (08:04)
--- NOTE | 2019-01-19 11:18 | Surgery Progress Note ---
Date of Service January 19, 2019 Assessment & Plan (1) Acute cholecystitis due to biliary calculus: POD # 1 s/p laparoscopic cholecystectomy -vitals stable, afebrile - no leukocytosis - t. bili wnl, LFTS trending down - post op pain controlled, no n/v Plan: discharge home today f/u surgical office in 2 weeks repeat Liver panel in 1 week given elevation of LFTs discharge instructions reviewed Rx for Percocet prn pain Dr. Erickson has seen and examined pt, agrees with above Subjective feeling good preoperative pain resolved post op pain minimal and controlled with Percocet no n/v, tolerated clear liquids for breakfast urinating without difficulty Physical Exam Constitutional: WD/WN, vitals as above no acute distress and not ill appearing Respiratory: normal respiratory effort; no respiratory distress Gastrointestinal (Abdomen): Inspection/Auscultation: abdomen normal to inspection; abdomen not distended Percussion/Palpation: + abdomen tender (at incision sites) and abdomen soft; no guarding and abdomen not rigid Skin: no rashes, warm and dry + incision (covered with dry dressings) Psychiatric: A+Ox3, euthymic affect Results & Data Vital Signs (Past 12 Hours) Vital Signs Temp Pulse Pulse Resp BP Pulse Ox 01/19/19 07:31 36.8 C 62 17 124/74 93 01/19/19 03:46 36.6 C 59 L 18 120/67 93 01/18/19 23:18 36.7 C 71 17 118/70 92 Laboratory Results 01/19/19 01/19/19 Range/Units 06:49 06:49 WBC 6.74 (4.8-10.8) K/uL RBC 4.08 L (4.2-5.4) M/uL Hgb 12.5 (12.0-16.0) g/dL Hct 38.0 (37-47) % MCV 93.1 (80-100) fL MCH 30.6 (25-34) pg MCHC 32.9 (32-36) g/dL RDW Std Deviation 45.2 (36.4-46.3) fL RDW Coeff of Rhett 13.4 (11.5-14.5) % Plt Count 169 (130-400) K/uL MPV 9.5 (7.4-10.4) fL Immature Gran % (Auto) 0.3 % Neut % (Auto) 78.7 % Lymph % (Auto) 12.9 % [place] % (Auto) 7.9 % Eos % (Auto) 0.1 % Baso % (Auto) 0.1 % Immature Gran # (Auto) 0.02 (0.00-0.02) K/uL Neut # (Auto) 5.30 (1.4-6.5) K/uL Lymph # (Auto) 0.87 L (1.2-3.4) K/uL [place] # (Auto) 0.53 (0.11-0.59) K/uL Eos # (Auto) 0.01 (0-0.5) K/uL Baso # (Auto) 0.01 (0-0.2) K/uL Sodium 139 (136-145) mmol/L Potassium 3.6 (3.5-5.1) mmol/L Chloride 106 (98-107) mmol/L Carbon Dioxide 30 (21-32) mmol/L Anion Gap 3.0 (3-11) BUN 7 (7-18) mg/dl Creatinine 0.80 (0.6-1.2) mg/dl Est Cr Clr Drug Dosing 65.3 ml/min Est GFR ( Amer) 90.3 Est GFR (Non-Af Amer) 77.9 BUN/Creatinine Ratio 8.8 L (10-20) Glucose 149 H (70-99) mg/dl Calcium 8.5 (8.5-10.1) mg/dl Total Bilirubin 0.7 (0.2-1) mg/dl AST 224 H (15-37) U/L ALT 383 H (12-78) U/L Alkaline Phosphatase 263 H (45-117) U/L Total Protein 6.3 L (6.4-8.2) gm/dl Albumin 3.2 L (3.4-5.0) gm/dl Globulin 3.1 (2.5-4.0) gm/dl Albumin/Globulin Ratio 1.0 (0.9-2)
--- NOTE | 2019-01-20 13:17 | Discharge Summary ---
Date of Service January 20, 2019 Admission HPI Per Admitting Provider HPI: pt is a 64 year-old female who presents to ER with 10 days history RUQ with nausea and vomiting, the pain is relate to fat food intake, tawana RUQ pain is getting worse today, pt denies chest pain, no fever, no diarrhea, pt had CT scan at ER dx acute cholecystitis with cholelithiasis Principal Diagnosis acute calculous cholecystitis Discharge Data Allergies Allergy/AdvReac Type Severity Reaction Status Date / Time No Known Allergies Allergy Verified 01/18/19 13:04 Consultations 01/17/19 22:45 ED Decision to Admit Stat Procedures Performed Operation Date: 01/18/19 10:50 Actual Procedures p Laparoscopic Cholecystectomy(Not Applicable) - Heidy Erickson MD Ordered Studies 01/17/19 20:09 CT abd pelvis IV con only Stat Hospital Course (1) Acute cholecystitis due to biliary calculus: Patient was admitted to hospital and was taken to operating room for laparoscopic cholecystectomy by Dr. Erickson. Patient found to have acute cholecystitis. Patient tolerated procedure well and was transferred to recovery room and then to medical/surgical floor for post operative care. She was started on clear liquid diet, IV fluids, PO Percocet with breakthrough IV Dilaudid prn pain, IV Zofran prn nausea, activity as tolerated, SCDs, incentive spirometry. Her LFTS were elevated preoperatively so labs were repeated on POD # 1 . LFTS improved but still elevated in 200's. T. bili wnl. Vitals stable, afebrile, minimal pain, tolerating clears. Diet advanced to regular diet for lunch. Advised to ambulate in hallway. Patient was discharged home on POD # 1 in stable condition. Advised for repeat liver panel in 1 week to monitor LFTs. Advised to avoid Tylenol. Total Time Total Time Spent Total Time Spent (In Minutes): 30 Total Time Includes: Examination of the Patient, Discharge Planning, Medication Reconciliation and Communication With Other Providers Discharge Plan Discharge Items Patient Disposition: Home - Self-Care Reason For Visit: ACUTE CHOLECYSTITIS Discharge Diagnosis: Same Discharge Goals: Decrease discomfort and Improve function Activity: Per 'Additional Instructions' section Non-emergency contact: Surgeon Call non-emergency contact if: your pain is not controlled, your pain is worsening, your pain is concerning for you, you have a fever, your temperature is above 101, your wound has increased redness, your wound has increased drainage and your wound pain has increased Follow-up/Referrals: Yasmine King MD [Primary Care Provider] - Diet: Regular Addtl Provider Instructions: No heavy lifting over 20 pounds for 4 weeks No strenuous activity until cleared by surgeon No submerging incisions underwater for 2 weeks (no bathing, swimming, or hot tubs) No driving while taking narcotic pain medication or until you are pain free You may shower 3 days after your surgery. Sponge bath and wash hair in meantime. Keep dressings on for 3 days and then remove and shower. Leave steri strips on incisions for 7 days and then remove. Walking and light activity is encouraged daily to prevent blood clots from forming in your legs You will be given prescription for Percocet as needed for moderate to severe pain. Take as directed. This medication may cause drowsiness or constipation. You may take extra strength Tylenol or Ibuprofen as needed for mild pain. Avoid Tylenol while taking Percocet as Percocet has Tylenol in it. May take OTC stool softener such as Colace daily or twice a day while taking pain medication to prevent constipation or straining. Drink plenty of water and avoid foods that constipate. Follow-up in surgical office in 2 weeks. We want to repeat your liver function tests as they were still elevated on day of discharge. I will place order into [employer] system so that you can get blood work in 1 week. Please call office at [phone] to schedule follow-up appointment and if you have any questions. Prescriptions: New oxycodone-acetaminophen [Percocet] 5-325 mg Tablet 1 tab PO Q4H PRN (Reason: pain) Qty: 15 RF: 0 Continued levothyroxine 88 mcg capsule 88 mcg PO DAILY RF: 0 magnesium hydroxide [Milk of Magnesia] 400 mg/5 mL Suspension PO UD PRN (Reason: Constipation) RF: 0 docusate sodium [Stool Softener] 100 mg Tablet 100 mg PO DAILY RF: 0 Metamucil 3.4 gram/5.4 gram Powder 1 tbsp PO DAILY RF: 0 Stand-Alone Forms: Call Back Authorization, [facility]/Other Patient Handouts: Surgery Prevent DVT After Discharge Orders: Discharge Order (Routine); Ordered 01/19/19 Ordered By: Bri Mehta Admission Data Admit Date/Time: 01/17/19 23:19 Attending Provider: Heidy Erickson Admit Provider: Heidy Erickson Primary Care Provider: Yasmine King Other Providers: Heidy Erickson Service: Surgical Services Other Interventions: Discharge Summary Assessment (RN) Last Done: 01/19/19 12:23 Pending Studies at Discharge: Yes (Gallbladder pathology, will be reviewed at follow-up visit) DC Date/Time DO NOT enter until pt leaves facility: 01/19/19 13:17
== END 2019-01-19 13:17 | disposition home or self-care (01) | DRG 419 ==
LOC: ED 19:48 → 3W 23:19

== ENCOUNTER 2024-11-21 15:25 | Inpatient (IN) ==
--- NOTE | 2024-11-21 15:51 | XRay Report ---
XR wrist LT min 3V routine CLINICAL HISTORY: trauma pain COMPARISON: None FINDINGS: No fracture or dislocation. IMPRESSION: No fracture seen. ACT 112: Negative or not required by law. Electronically signed by: Enzo Doty M.D. 11/21/2024 3:50 PM
--- NOTE | 2024-11-21 15:52 | XRay Report ---
XR pelvis 1-2V routine CLINICAL HISTORY: Trauma COMPARISON: 04/26/2024 FINDINGS: No fracture or dislocation. There are mild degenerative changes at the hips and lower lumb ar spine. IMPRESSION: No pelvic fracture seen. ACT 112: Negative or not required by law. Electronically signed by: Enzo Doty M.D. 11/21/2024 3:51 PM
--- NOTE | 2024-11-21 15:53 | XRay Report ---
XR ankle LT min 3V routine CLINICAL HISTORY: Left ankle pain following injury. COMPARISON: Left ankle radiographs March 05, 2009. FINDINGS: Left ankle internal fixation hardware is noted. The hardware is intact. There is an acute appearing displaced fracture of the medial malleolus. The fracture is displaced 6 mm. No ankle mortis e widening is identified. There is no acute distal left fibular fracture. Lateral projection demonstr ates an oblique lucency which projects over the posterior distal left tibia. IMPRESSION: 1. Previous left ankle internal fixation. Hardware intact. 2. Acute mildly displaced medial malleolar fracture. 3. Oblique lucency which project over the posterior distal left tibia on lateral projection. This may be artifactual however an acute nondisplaced fracture could appear similar. This can be assessed wit h CT. 4. No ankle mortise widening. ACT 112: Negative or not required by law. Electronically signed by: Mikhail Vigil M.D. 11/21/2024 3:52 PM
--- NOTE | 2024-11-21 15:55 | XRay Report ---
PORTABLE SUPINE AP CHEST RADIOGRAPH CLINICAL HISTORY: Trauma COMPARISON STUDY: Chest radiograph January 21, 2019. FINDINGS: No pneumothorax or pleural effusion is identified on supine exam. Cardiomegaly is unchanged . A hiatal hernia is again noted. No airspace opacities are present. There is no evidence for pulmona ry edema. Left lower lung opacity favors atelectasis. Patient is mildly rotated. IMPRESSION: No acute cardiopulmonary findings. No significant change in appearance of the chest. ACT 112: Negative or not required by law. Electronically signed by: Mikhail Vigil M.D. 11/21/2024 3:54 PM
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
[2024-11-21 15:58] LABS: Basophils # (auto) 0.05 K/uL (0.00-0.20); Basophils % (auto) 0.6 %; Eosinophils # (auto) 0.09 K/uL (0.00-0.50); Eosinophils % (auto) 1.1 %; Hematocrit (blood only) 40.1 % (37.0-47.0); Hemoglobin 13.4 g/dl (12.0-16.0); Immature Granulocytes # (auto) 0.01 K/uL (0.01-0.20); Immature Granulocytes % (auto) 0.1 %; Lymphocytes # (auto) 0.94 K/uL (1.20-3.40); Lymphocytes % (auto) 11.7 %; Mean Corpuscular Hemoglobin 31.8 pg (25.0-34.0); Mean Corpuscular Hgb Conc 33.4 g/dL (32.0-36.0); Mean Corpuscular Volume 95.2 fL (80.0-100.0); Mean Platelet Volume 9.6 fL (9.4-12.4); Monocytes # (auto) 0.87 K/uL (0.11-0.59); Monocytes % (auto) 10.9 %; Neutrophils # (auto) 6.05 K/uL (1.40-6.50); Neutrophils % (auto) 75.6 %; Platelet Count 164 K/uL (130-400); RDW Coefficient of Variation 11.9 % (11.5-14.5); RDW Standard Deviation 41.6 fL (36.4-46.3); Red Blood Count 4.21 M/uL (4.20-5.40); White Blood Count 8.01 K/ul (4.8-10.8)
[2024-11-21 16:00] LABS: iSTAT Creatinine 0.8 mg/dl (0.6-1.3); iSTAT Hemoglobin 13.6 g/dl (12.0-16.0); iSTAT Ionized Calcium 1.1 mmol/l (1.12-1.32); iSTAT Potassium 3.8 mmol/L (3.3-5.0)
[2024-11-21 16:17] LABS: INR 0.9 (0.9-1.1); Partial Thromboplastin Ratio 0.9; Partial Thromboplastin Time 24 Seconds (21-31); Prothrombin Time 10.3 Seconds (9.0-12.0)
[2024-11-21 16:19] LABS: Bilirubin,Total 0.4 mg/dl (0.2-1.0); Calcium 8.9 mg/dl (8.6-10.3); Potassium 3.8 mmol/L (3.5-5.1)
[2024-11-21] MEDS: OPTIRAY 320 100ml IV ONE (16:20)
[2024-11-21 16:25] LABS: Albumin Globulin Ratio 1.7 (0.9-2); BUN Creatinine Ratio 21.3 (10-20); Creatinine Clr Calc Pharmacy 67.7 ml/min; Globulin 2.4 gm/dl (2.5-4.0); Total Protein 6.4 gm/dl (6.0-8.3)
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
[2024-11-21] MEDS: SODIUM CHLORIDE 0.9% 500 ML IV SCH (16:44)
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
[2024-11-21] MEDS: ONDANSETRON INJ 2 MG/ML 2 ML VIAL IV STA (16:47)
[2024-11-21] MEDS: MoRPHine SULFATE 2 MG/ML CARP IV STA ×3 (16:47→22:45)
[2024-11-21] MEDS: ACETAMINOPHEN 1,000 MG/100 ML VIAL IV STA (16:47)
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
[2024-11-21] MEDS: ONDANSETRON INJ 2 MG/ML 2 ML VIAL ONE (20:59)
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
[2024-11-21 21:39] LABS: Appearance Urine Clear (Clear); Bilirubin Urine Negative (Negative); Blood Urine Negative (Negative); Color Urine Yellow; Glucose Urine UA Negative (Negative); Ketones Urine Trace (Negative); Leukocyte Esterase Urine Negative (Negative); Nitrite Urine Negative (Negative); Protein Urine Negative (Negative); Specific Gravity Urine > 1.045 (1.000-1.030); Urobilinogen Urine Negative (Negative)
[2024-11-21 23:25] LABS: Hematocrit (blood only) 35.5 % (37.0-47.0); Hemoglobin 12.2 g/dl (12.0-16.0)
[2024-11-21] MEDS ORDERED: DOCUSATE SODIUM 100 MG CAP PO PRN (23:41)
[2024-11-21] MEDS ORDERED: ONDANSETRON INJ 2 MG/ML 2 ML VIAL IV PRN (23:41)
[2024-11-21] MEDS ORDERED: MoRPHine SULFATE 4 MG/ML 1 ML CARP\\VIAL IV PRN (23:41)
[2024-11-21] MEDS ORDERED: MELATONIN 3 MG TAB PO PRN (23:41)
[2024-11-21] MEDS ORDERED: NALOXONE HCL 0.4 MG/1 ML VIAL/CARP IV PRN (23:41)
[2024-11-21] MEDS: LACTATED RINGER'S 1,000 ML IV SCH (23:49)
[2024-11-22] MEDS: METOPROLOL SUCC 25MG EXT REL TAB PO SCH (01:22)
[2024-11-22] MEDS: ACETAMINOPHEN 1,000 MG/100 ML VIAL IV PRN (01:29)
[2024-11-22] MEDS: MoRPHine SULFATE 2 MG/ML CARP IV PRN (04:05)
[2024-11-22 06:07] LABS: Basophils # (auto) 0.05 K/uL (0.00-0.20); Eosinophils # (auto) 0.19 K/uL (0.00-0.50); Eosinophils % (auto) 3.6 %; Hematocrit (blood only) 35.4 % (37.0-47.0); Hemoglobin 11.7 g/dl (12.0-16.0); Immature Granulocytes # (auto) 0.02 K/uL (0.01-0.20); Immature Granulocytes % (auto) 0.4 %; Lymphocytes % (auto) 17.2 %; Mean Corpuscular Hemoglobin 31.5 pg (25.0-34.0); Mean Corpuscular Hgb Conc 33.1 g/dL (32.0-36.0); Mean Corpuscular Volume 95.2 fL (80.0-100.0); Mean Platelet Volume 9.3 fL (9.4-12.4); Monocytes # (auto) 0.68 K/uL (0.11-0.59); Neutrophils # (auto) 3.39 K/uL (1.40-6.50); Neutrophils % (auto) 64.8 %; Platelet Count 139 K/uL (130-400); RDW Coefficient of Variation 12.2 % (11.5-14.5); RDW Standard Deviation 42.5 fL (36.4-46.3); Red Blood Count 3.72 M/uL (4.20-5.40); White Blood Count 5.23 K/ul (4.8-10.8)
[2024-11-22 06:19] LABS: BUN Creatinine Ratio 22.2 (10-20); Calcium 8.2 mg/dl (8.6-10.3); Creatinine Clr Calc Pharmacy 79.3 ml/min; Potassium 3.6 mmol/L (3.5-5.1)
[2024-11-22 06:24] LABS: Alanine Aminotransferase 12 U/L (7-52); Albumin Globulin Ratio 1.8 (0.9-2); Albumin Level 3.4 gm/dl (3.4-5.0); Alkaline Phosphatase 45 U/L (34-104); Anion Gap 3 (3-11); Aspartate Aminotransferase 16 U/L (13-39); BUN Creatinine Ratio 22.2 (10-20); Bilirubin,Total 0.4 mg/dl (0.2-1.0); Blood Urea Nitrogen 14 mg/dl (6-23); Calcium 8.2 mg/dl (8.6-10.3); Carbon Dioxide 30 mmol/L (21-32); Chloride 106 mmol/L (98-107); Creatinine Clr Calc Pharmacy 79.3 ml/min; Globulin 1.9 gm/dl (2.5-4.0); Glucose 90 mg/dl (70-99(Fasting)); Potassium 3.6 mmol/L (3.5-5.1); Sodium 139 mmol/L (136-145); Total Protein 5.3 gm/dl (6.0-8.3)
[2024-11-22] MEDS: LEVOTHYROXINE SODIUM 100 MCG TABLET PO SCH (06:35)
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
[2024-11-22] MEDS: KETOROLAC TROMETHAMINE 15 MG/ML VIAL IV PRN (08:32)
[2024-11-22] MEDS: LOSARTAN POTASSIUM 50 MG TAB PO SCH (08:32)
[2024-11-22 08:45] LABS: Troponin I High Sensitivity < 2.3 pg/ml (0-14)
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
--- NOTE | 2024-11-22 10:25 | Electrocardiogram Report ---
Test Reason : Blood Pressure : */* mmHG Vent. Rate : 75 BPM Atrial Rate : 75 BPM P-R Int : 212 ms QRS Dur : 74 ms QT Int : 388 ms P-R-T Axes : 63 75 45 degrees QTcB Int : 433 ms Sinus rhythm with 1st degree A-V block Otherwise normal ECG When compared with ECG of 21-Jan-2019 16:29, Questionable change in QRS axis Confirmed by Ronny Nava ([id number]) on 11/22/2024 10:24:44 AM Referred By: REFERRED SELF Confirmed By: Ronny Nava
--- NOTE | 2024-11-22 10:36 | Electrocardiogram Report ---
Test Reason : Blood Pressure : */* mmHG Vent. Rate : 63 BPM Atrial Rate : 63 BPM P-R Int : 226 ms QRS Dur : 76 ms QT Int : 408 ms P-R-T Axes : 53 63 29 degrees QTcB Int : 417 ms Sinus rhythm with 1st degree A-V block Low voltage QRS Cannot rule out Anteroseptal infarct , age undetermined Abnormal ECG When compared with ECG of 21-Nov-2024 20:46, (unconfirmed) Minimal criteria for Anteroseptal infarct are now Present Confirmed by Ronny Nava ([id number]) on 11/22/2024 10:36:14 AM Referred By: REFERRED SELF Confirmed By: Ronny Nava
[2024-11-22] MEDS ORDERED: HYDROCODONE/ACETAMINOPHEN 7.5/325MG TAB PO PRN (14:37)
[2024-11-22] MEDS: ERGOCALCIFEROL 1250 MCG (50,000 UNITS) CAP PO ONE (14:59)
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
[2024-11-22] MEDS: ACETAMINOPHEN 500 MG TAB PO SCH (20:11)
[2024-11-23 06:15] LABS: Basophils # (auto) 0.06 K/uL (0.00-0.20); Basophils % (auto) 1.2 %; Eosinophils % (auto) 6.2 %; Hematocrit (blood only) 36.7 % (37.0-47.0); Hemoglobin 12.3 g/dl (12.0-16.0); Immature Granulocytes # (auto) 0.01 K/uL (0.01-0.20); Immature Granulocytes % (auto) 0.2 %; Lymphocytes # (auto) 0.75 K/uL (1.20-3.40); Lymphocytes % (auto) 15.5 %; Mean Corpuscular Hemoglobin 31.9 pg (25.0-34.0); Mean Corpuscular Hgb Conc 33.5 g/dL (32.0-36.0); Mean Corpuscular Volume 95.1 fL (80.0-100.0); Mean Platelet Volume 9.5 fL (9.4-12.4); Monocytes % (auto) 12.4 %; Neutrophils # (auto) 3.11 K/uL (1.40-6.50); Neutrophils % (auto) 64.5 %; Platelet Count 135 K/uL (130-400); RDW Standard Deviation 41.7 fL (36.4-46.3); Red Blood Count 3.86 M/uL (4.20-5.40); White Blood Count 4.83 K/ul (4.8-10.8)
[2024-11-23 06:39] LABS: Albumin Level 3.4 gm/dl (3.4-5.0); Bilirubin,Total 0.4 mg/dl (0.2-1.0); Calcium 8.5 mg/dl (8.6-10.3); Potassium 3.8 mmol/L (3.5-5.1)
[2024-11-23 06:45] LABS: Albumin Globulin Ratio 1.7 (0.9-2); BUN Creatinine Ratio 24.5 (10-20); Creatinine Clr Calc Pharmacy 94.4 ml/min; Total Protein 5.4 gm/dl (6.0-8.3)
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
[2024-11-23] MEDS: SENNA 8.6 MG TAB PO SCH (15:03)
[2024-11-23] MEDS: POLYETHYLENE (MIRALAX) 17 GM PACK PO SCH (15:03)
[2024-11-23] MEDS: KETOROLAC TROMETHAMINE 15 MG/ML VIAL IV SCH (15:04)
[2024-11-23] MEDS: HEPARIN SOD 5,000 UNIT/0.5 ML VIAL SQ SCH (15:04)
[2024-11-23] MEDS: OPTIRAY 320 125ml IV ONE (16:07)
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
[2024-11-23] MEDS: BACLOFEN 10 MG TAB PO SCH (21:57)
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
[2024-11-24] MEDS: ASPIRIN 81 MG ECTAB PO SCH (21:11)
[2024-11-24] MEDS: LOSARTAN POTASSIUM 50 MG TAB PO SCH (21:19)
[2024-11-25 07:40] VITALS: O2SAT 96
[2024-11-25 07:45] LABS: Hematocrit (blood only) 38.7 % (37.0-47.0); Hemoglobin 12.8 g/dl (12.0-16.0); Mean Corpuscular Hgb Conc 33.1 g/dL (32.0-36.0); Mean Corpuscular Volume 93.7 fL (80.0-100.0); Mean Platelet Volume 9.3 fL (9.4-12.4); Platelet Count 152 K/uL (130-400); RDW Standard Deviation 41.7 fL (36.4-46.3); Red Blood Count 4.13 M/uL (4.20-5.40); White Blood Count 5.08 K/ul (4.8-10.8)
[2024-11-25 08:11] LABS: BUN Creatinine Ratio 20.8 (10-20); Calcium 8.8 mg/dl (8.6-10.3); Creatinine Clr Calc Pharmacy 95.3 ml/min; Potassium 3.7 mmol/L (3.5-5.1)
[2024-11-25] MEDS: HYDROcodone/ACETAMINOPHEN 10/325 TAB PO PRN (10:20)
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
[2024-11-25 12:34] VITALS: BP 156/83; PULSE 76; RESP 19; TEMP 97.9
--- NOTE | 2024-11-25 12:39 | Ultrasound Report ---
Clinical history: Right antecubital pain and swelling Technique: Directed sonography was performed of the right antecubital area, the site of concern Findings: There appears to be thrombus in the midportion of the cephalic vein, extending approximately 4.1 cm in length. The remainder of the visualized cephalic vein appears patent. There is increased vascularity in the soft tissues, with apparent subcutaneous edema that could be due to cellulitis. There appears to be a small ulceration or wound. No clear discrete abscess is identified Impression: 1. Superficial venous thrombosis involving the cephalic vein 2. Possible cellulitis with a soft tissue ulceration or wound. No clear abscess is seen ACT 112: Positive. There are findings on this exam that require communication between the performing entity and the patient following Patient Test Result Information Act ([place] ACT 112) guidelines. Electronically signed by Augie Florez 11-25-2024 12:38 PM
== END 2024-11-25 13:51 | disposition home health service (06) | DRG 563 ==
LOC: ED 15:25 → 2E 21:39 → SUATTDRO 21:39 → 2E 22:55